=== PATIENT | male | born 1980 | race African-American/Black ===

== ENCOUNTER 2021-11-30 08:32 | Emergency (ER) | payer OTHER ==
[~2021-11-30] VITALS: Ht 162.6 cm; Wt 72.6 kg
[2021-11-30 08:33] VITALS: BP 147/88; TEMP 97.3
[2021-11-30 08:59] LABS: PLATELET COUNT 206 K/uL (142-355)
[2021-11-30 09:07] LABS: POTASSIUM 3.8 mmol/L (3.6-5.2)
== END 2021-11-30 09:45 | disposition home or self-care (01) ==
LOC: ED 08:32
PROVIDERS: Hospitalist
DX: R07.89 Other chest pain (principal)
CPT/HCPCS: 80053; 82550; 83880; 84484; 85027; 85379; 85610; 85730; 93005; 99283